=== PATIENT | male | born 2000 | race Caucasian/White ===

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

== ENCOUNTER 2021-12-12 13:09 | Emergency (ER) | payer SELFPAY ==
[2021-12-12] MEDS ORDERED: Bupivacaine 0.25% 10 ML SDV INJECT ONE (14:27)
[2021-12-12] MEDS ORDERED: Lidocaine 1% 5 ML VIAL INJECT ONE (14:27)
== END 2021-12-12 16:44 | disposition home or self-care (01) ==
LOC: MW.ED 13:09
DX: L60.0 Ingrowing nail (principal); I25.2 Old myocardial infarction; E11.9 Type 2 diabetes mellitus without complications; Z86.16 Personal history of COVID-19; Z79.899 Other long term (current) drug therapy
CPT/HCPCS: 11750; 99283; J3490; 11730

== ENCOUNTER 2022-01-12 22:53 | Emergency (ER) | payer SELFPAY ==
[2022-01-12] MEDS ORDERED: Ibuprofen 600 MG Tab PO ONE (23:29)
[2022-01-12] MEDS ORDERED: Sulfamethoxazole/Trimethoprim 800-160 MG Tab PO ONE (23:29)
== END 2022-01-12 23:49 | disposition home or self-care (01) ==
LOC: MW.ED 22:53
DX: L60.0 Ingrowing nail (principal)
CPT/HCPCS: 99283; A9270